=== PATIENT | female | born 1975 | race Caucasian/White ===

== ENCOUNTER 2016-07-07 11:55 | Day surgery (SDC) | payer OTHER ==
[~2016-07-07] VITALS: Ht 172.7 cm; Wt 71.0 kg
[~2016-07-07 11:55] MED LIST: CITA10TA9 PO; PANT40TA3 PO; RANI300C PO
[2016-07-07] MEDS ORDERED: fentaNYL-PF 50 mCg/mL 2 mL Inj ONE (11:56)
[2016-07-07] MEDS ORDERED: Propofol 10,000 mCg/mL 20 mL Inj ONE (11:56)
[2016-07-07 12:11] VITALS: BP 124/90; PULSE 104; RESP 16; O2SAT 99
[2016-07-07] MEDS ORDERED: Lactated Ringer's 1,000 ML IV ONE ×2 (12:37→13:51)
--- NOTE | 2016-07-07 12:39 | PCM.HPANE ---
Patient Data Surgeon Admitting Provider: Attending Provider:Jc Miller MD Primary Care Physician:Spencer Sommer MD Other Provider:[facility] Reason for Visit Dysphagia Ht/WT & BMI Body Mass Index Allergies Coded Allergies: Adhesives (Verified Allergy, Mild, RASH, 07/07/16) latex (Verified Allergy, Mild, RASH, 07/07/16) amoxicillin (Verified Allergy, Unknown, 07/03/16) mirtazapine (Verified Allergy, Unknown, 07/03/16) zolpidem (Verified Allergy, Unknown, 07/03/16) Medications Reported Medications Ranitidine 300 Mg [id number] Mg PO BID Ref 0 07/03/[address] 40 Mg Tablet.dr40 Mg PO DAILY Ref 0 07/03/16 Citalopram 10 Mg Opxafr85 Mg PO DAILY Ref 0 07/03/16 Stop/Bang Risk Assessment Category Category 1A: Patient has history of documented sleep apnea, and HAS NOT received any narcotic, sedative or anesthesia administration during this stay. Category 1B: Patient has history of documented sleep apnea, and HAS received any narcotic , sedative or anesthesia administration during this stay Category 2: Patient has SUSPECTED Obstructive Sleep Apnea, and HAS received any narcotic , sedative or anesthesia administration during this stay. Category 3: Patient has SUSPECTED Obstructive Sleep Apnea and HAS NOT received narcotic, sedative or anesthesia administration during this stay. Category 4: Outpatient in Procedural Areas with known sleep apnea or who screen positive for High Risk via the STOP/BANG questionnaire. Exam Exam General Appearance: Alert, Oriented X3, Cooperative, No Acute Distress HEENT/AIRWAY: MP 2 Lungs: Clear to Auscultation Heart: Exam Unremarkable Plan Impression Patient chart reviewed, patient interviewed and anesthestic plan with risks, benefits, and alternatives discussed, and informed consent obtained. ASA Physical Status: ASA1 Normal Healthy Anesthetic Plan: MAC Bene/Risks/Altern/Consents: Yes HP Complete Prior to Induction: Yes Lavell Key MD Jul 07, 2016 07:58
--- NOTE | 2016-07-07 12:45 | PCM.ANEP2 ---
Post Anesthesia Evaluation ASA/CMS Post Anesthesia VS in Patient's Normal Range?: Yes Resp Stable; Airway Patent?: Yes CV Function & Hydration Stable: Yes Mental Status Recovered?: Yes Pain control Satisfactory?: Yes N/V Control Satisfactory?: Yes Lavell Key MD Jul 07, 2016 12:45
[2016-07-07 12:49] VITALS: BP 102/70; PULSE 72; RESP 14; O2SAT 98
[2016-07-07 12:59] VITALS: BP 118/72; PULSE 59; RESP 14; O2SAT 100
--- NOTE | 2016-07-07 20:48 | ENDO ---
[address] [address] ENDOSCOPY PROCEDURE PATIENT: LATASHA BRINK : 1975 MR#: [id number] ADMIT: 07/07/2016 JOB ID: [id number] TYPE OF OPERATION: 1. Esophagogastroduodenoscopy with biopsy. 2. Esophageal dilatation. PREOPERATIVE DIAGNOSIS(ES): Dysphagia. POSTOPERATIVE DIAGNOSIS(ES): Normal upper endoscopy, status post biopsy and pre-18-20 mm balloon dilatation performed up to 20 mm in serial fashion with good mucosal tear. ANESTHESIA: Monitored anesthesia care. COMPLICATIONS: None. BLOOD LOSS: Minimal. DESCRIPTION OF PROCEDURE: After risks and benefits explained to the patient, informed consent was obtained. After anesthesia was administered, upper endoscope was then inserted into the mouth and into the esophagus. The stomach, second portion of the duodenal mucosa examined. After the procedure was done, the scope withdrawn and procedure terminated. FINDINGS: Upon inspection of the esophagus, the esophagus was normal without masses, ulcers, lesions. Z-line was located 40 cm from incisors. Upon entry into the stomach, the stomach was also normal without masses, ulcers, or lesions. Retroflexion was normal. Duodenal bulb, first and second portion were normal. Biopsies were taken in mid and distal esophagus to rule out eosinophilic esophagitis. Afterwards, a serial Cre -TTS balloon dilatation in serial fashion of 18-20 mm in diameter and held for 1 minute with good mucosa tear. IMPRESSION: Normal upper endoscopy, status post biopsy and serial Cre TTS through the scope. Balloon dilatation performed from to 20 mm in serial fashion with good mucosal tear. RECOMMENDATIONS: Await pathology results. Follow up in GI clinic as needed. ALIXD
--- NOTE | 2016-07-08 12:05 | PATH ---
SURGICAL PATHOLOGY Attending Physician:Jc Miller MD CASE STATUS: Signed Out PATIENT NAME: LATASHA BRINK PID: [id number] : 1975 DATE COLLECTED:07/07/2016 19:40 SPECIMEN: 1: Esophagus, Biopsy 2: Esophagus, Biopsy CLINICAL HISTORY: DYSPHAGIA 1). DISTAL ESOPHAGUS BIOPSY 2). 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 Negative for eosinophilic esophagitis. Negative for intestinal metaplasia. No evidence of malignancy or dysplasia. 2.MID ESOPHAGUS, BIOPSY: ESOPHAGEAL SQUAMOUS EPITHELIUM WITH MILD CHRONIC ACTIVE ESOPHAGITIS. Negative for eosinophilic esophagitis. Negative for intestinal metaplasia. No evidence of malignancy or dysplasia. ICD10 CODE K20.9 GROSS DESCRIPTION: The specimen is received in two formalin filled containers labeled with the patient's name. 1). The specimen is sublabeled "distal esophagus" and consists of a 0.3 x 0.3 x 0.2 CM portion of tissue which is entirely submitted in cassette 1A. 2). The specimen is sublabeled "mid esophagus" and consists of 3 portions of tissue which aggregate to 0.3 x 0.3 x 0.2 CM. The specimen is entirely submitted in cassette 2A. 07/07/2016 [facility] MICRO DESCRIPTION: See diagnosis. ICD-9 CODES: CPT CODES: 1: 38260 2: 01395 Electronically Signed Out Brandt Ledezma MD [facility] Pathology [facility] [address], [place] [address] Technical component performed at [facility], [address] [place] [address] Ave[address], [place], [address]
== END 2016-07-07 23:59 | disposition home or self-care (01) ==
LOC: END 11:55
PROVIDERS: ATTEND Internal Medicine Gastroenterology
DX: K20.9 Esophagitis, unspecified (principal); K21.9 Gastro-esophageal reflux disease without esophagitis; R13.10 Dysphagia, unspecified; F41.9 Anxiety disorder, unspecified
CPT/HCPCS: 43239; 43249; 88305; J7120